=== PATIENT | male | born 1995 | race African-American/Black ===

== ENCOUNTER 2022-09-29 16:13 | Emergency (ER) | payer SELFPAY ==
[~2022-09-29] VITALS: Ht 180.3 cm; Wt 75.7 kg
--- NOTE | 2022-09-29 16:25 | NUR ---
at bedside for evaluation.
[2022-09-29] MEDS ORDERED: IBUPROFEN 800 MG TABLET ONE (16:28)
[2022-09-29] MEDS ORDERED: IBUPROFEN 800 MG TABLET PO ONE (16:30)
[2022-09-29 17:44] VITALS: BP 125/72
--- NOTE | 2022-09-29 17:44 | NUR ---
Patient discharged to home in stable condition. Written and verbal after care instructions given. Patient verbalizes understanding of instructions. Stressed follow up or return to ER for worsening s/s.
== END 2022-09-29 17:45 | disposition home or self-care (01) ==
LOC: ER 16:15
DX: S60.222A Contusion of left hand, initial encounter (principal); S60.221A Contusion of right hand, initial encounter; V43.52XA Car driver injured in collision with other type car in traffic accident, initial encounter; Y93.89 Activity, other specified; Y92.410 Unspecified street and highway as the place of occurrence of the external cause; Y99.8 Other external cause status
CPT/HCPCS: 73130; A4663